=== PATIENT | male | born 1995 | race Caucasian/White ===

== ENCOUNTER 2019-08-29 06:05 | Day surgery (SDC) | payer BC, SELFPAY ==
[~2019-08-29] VITALS: Ht 177.8 cm; Wt 90.7 kg
[2019-08-29] MEDS ORDERED: HYDROmorphone 1 MG INJ. 1 MG/ML AMPUL IVP PRN ×2 (09:45)
[2019-08-29] MEDS ORDERED: MIDAZOLAM HCL 2 MG/2 ML VIAL (VERSED) IVP PRN (09:45)
[2019-08-29] MEDS ORDERED: ONDANSETRON HCL 4 MG/2 ML VIAL IVP PRN (09:45)
[2019-08-29] MEDS ORDERED: MEPERIDINE HCL/PF 25 MG/ML DISP.SYRIN IVP PRN (09:45)
[2019-08-29] MEDS ORDERED: METOCLOPRAMIDE HCL 10 MG/2 ML VIAL IVP PRN (09:45)
[2019-08-29] MEDS ORDERED: LR 1,000 ML IV SCH (09:45)
[2019-08-29] MEDS ORDERED: DEXAMETHASONE SOD PHOSPHATE 4 MG/ML VIAL ONE (10:51)
[2019-08-29] MEDS ORDERED: NEOSTIGMINE METHYLSULFATE 1 MG/ML, 10 ML VIAL ONE (10:51)
[2019-08-29] MEDS ORDERED: GLYCOPYRROLATE 0.2 MG/ML VIAL ONE (10:51)
[2019-08-29] MEDS ORDERED: KETOROLAC TROMETHAMINE 30 MG VIAL ONE (10:51)
[2019-08-29] MEDS ORDERED: ONDANSETRON HCL 4 MG/2 ML VIAL ONE (10:51)
[2019-08-29] MEDS ORDERED: ROCURONIUM BROMIDE 10 MG/ML (ZEMURON) ONE (10:51)
[2019-08-29] MEDS ORDERED: NS IRRIG SOLN 1000 ML IR ONE (10:51)
[2019-08-29] MEDS ORDERED: PROPOFOL 200MG/ 20ML VIAL (DIPRIVAN) IV ONE (10:51)
[2019-08-29] MEDS ORDERED: fentaNYL CITRATE/PF 100 MCG/2 ML AMP ONE (10:51)
[2019-08-29] MEDS ORDERED: SEVOFLURANE 15 MIN GAS INH ONE (10:51)
[2019-08-29] MEDS ORDERED: MIDAZOLAM HCL 5 MG/ML VIAL (VERSED) IV ONE (10:51)
[2019-08-29] MEDS ORDERED: LR 1,000 ML IV.SOLN IV ONE (10:51)
[2019-08-29 11:35] VITALS: BP_SYST 141
[2019-08-29] MEDS ORDERED: METOCLOPRAMIDE HCL 10 MG/2 ML VIAL ONE (12:22)
== END 2019-08-29 15:25 | disposition home or self-care (01) ==
LOC: SMU 06:05 → SDS 06:05
PROVIDERS: ATTEND Otolaryngology
DX: J34.89 Other specified disorders of nose and nasal sinuses (principal); J34.2 Deviated nasal septum; J30.1 Allergic rhinitis due to pollen; R04.0 Epistaxis; J34.3 Hypertrophy of nasal turbinates; Z11.59 Encounter for screening for other viral diseases
CPT/HCPCS: 30140; 30520; 88305; 88311; J1100; J1885; J2250; J2405; J2704; J2710; J2765; J3010; J3465; J3490; J7120; U0003